=== PATIENT | female | born 1990 | race Caucasian/White ===

== ENCOUNTER 2020-11-12 00:03 | Inpatient (IN) | payer OTHER ==
[~2020-11-12] VITALS: Ht 167.6 cm; Wt 120.2 kg
[2020-11-12 00:57] LABS: HCT 31.6 % (37.0-47.0); HGB 10.5 g/dl (12.5-16.0); MCH 27.5 pg (25.0-31.0); MCHC 33.2 g/dL (32.0-36.0); MCV 82.7 fL (78.0-100.0); MPV 10.5 fL (6.0-9.5); RBC 3.82 M/uL (4.20-5.40); WBC 9.1 K/uL (4.0-10.5)
[2020-11-12 00:59] LABS: BILIRUBIN NEGATIVE (NEGATIVE); BLOOD NEGATIVE Ery/uL (NEGATIVE); CLARITY CLEAR (CLEAR); COLOR YELLOW (YELLOW); GLUCOSE (U) NORMAL (NORMAL); LEUKOCYTES NEGATIVE Leu/uL (NEGATIVE); NITRITE NEGATIVE (NEGATIVE); PROTEIN NEGATIVE (NEGATIVE); SPECIFIC GRAVITY 1.015 (1.001-1.030); UROBILINOGEN 0.2 mg/dL (0.2-1.0)
[2020-11-13 05:35] LABS: HCT 29.2 % (37.0-47.0); HGB 9.7 g/dl (12.5-16.0); MCH 27.9 pg (25.0-31.0); MCHC 33.2 g/dL (32.0-36.0); MCV 83.9 fL (78.0-100.0); MPV 10.6 fL (6.0-9.5); RBC 3.48 M/uL (4.20-5.40); RDW 14.5 % (11.5-14.0); WBC 9.8 K/uL (4.0-10.5)
== END 2020-11-13 18:33 | disposition home or self-care (01) | DRG 806 ==
LOC: FOB 00:03
PROVIDERS: ADMIT Obstetrics & Gynecology
PROC: 10E0XZZ Delivery of Products of Conception, External Approach (ICD-10-PCS; principal; 2020-11-12)
PROC: 0HQ9XZZ Repair Perineum Skin, External Approach (ICD-10-PCS; 2020-11-12)
PROC: 3E0P7VZ Introduction of Hormone into Female Reproductive, Via Natural or Artificial Opening (ICD-10-PCS; 2020-11-12)
PROC: 3E0234Z Introduction of Serum, Toxoid and Vaccine into Muscle, Percutaneous Approach (ICD-10-PCS; 2020-11-13)
DX: O99.214 Obesity complicating childbirth (principal); D62 Acute posthemorrhagic anemia; Z37.0 Single live birth; O26.893 Other specified pregnancy related conditions, third trimester; Z20.822 Contact with and (suspected) exposure to COVID-19; O99.02 Anemia complicating childbirth; Z67.31 Type AB blood, Rh negative; O70.0 First degree perineal laceration during delivery; E66.9 Obesity, unspecified; Z3A.39 39 weeks gestation of pregnancy
CPT/HCPCS: 36415; 81003; 86850; 86900; 86901; J2790; J2916; J7120; U0002